=== PATIENT | male | born 1940 | race Caucasian/White ===

== ENCOUNTER 2017-11-05 18:21 | Emergency (ER) | payer MEDICARE, BC ==
[~2017-11-05] VITALS: Ht 177.8 cm; Wt 85.0 kg
[2017-11-05 18:23] VITALS: BP 160/97; PULSE 105; RESP 20; TEMP 102.4; O2SAT 94
[2017-11-05] MEDS ORDERED: SODIUM CHLOR 0.9% 1000 ML INJ 1,000 ML IV ONE (18:45)
[2017-11-05] MEDS ORDERED: SODIUM CHLORIDE 0.9% FLUSH 10 ML FLUSH IVF PRN (18:45)
[2017-11-05] MEDS ORDERED: ACETAMINOPHEN 500 MG CPLT PO ONE (18:45)
[2017-11-05] MEDS ORDERED: RESP: ALBUTEROL 2.5 MG/IPRATROPIUM 0.5 MG NEB (SCH) INH ONE (18:45)
[2017-11-05 18:55] VITALS: O2SAT 93
[2017-11-05 19:35] VITALS: BP 153/83; PULSE 102; RESP 18; O2SAT 95
--- NOTE | 2017-11-05 19:35 | RADRPT ---
EXAM DATE/TIME: 11/05/2017 19:00 [place] COMPARISON: No previous studies available for comparison. INDICATIONS : Flu like symptoms. MEDICAL HISTORY : AFIB, Pneumonia. SURGICAL HISTORY : Ablation, Surgery to bronchi ENCOUNTER: Initial ACUITY: 3 weeks PAIN SCORE: 3/10 LOCATION: Bilateral chest FINDINGS: A single view of the chest demonstrates the lungs to be symmetrically aerated without evidence of mas s, infiltrate or effusion. The cardiomediastinal contours are unremarkable. Osseous structures are intact. CONCLUSION: No acute disease. Blue Diana Jr., MD on November 05, 2017 at 19:33 Board Certified Radiologist. This report was verified electronically.
[2017-11-05 20:03] LABS: AUTOMATED NEUTROPHIL # 12.1 TH/MM3 (1.8-7.7); BASOPHIL % 0.3 % (0.0-2.0); EOSINOPHIL # 0.2 TH/MM3 (0-0.4); EOSINOPHIL % 1.3 % (0.0-4.0); HEMATOCRIT 45.7 % (39.0-51.0); HEMOGLOBIN 15.2 GM/DL (13.0-17.0); LYMPH % 3.7 % (9.0-44.0); LYMPHOCYTE # 0.5 TH/MM3 (1.0-4.8); MEAN CELL VOLUME 95.6 FL (80.0-100.0); MEAN CORPUSCULAR HEMOGLOBIN 31.8 PG (27.0-34.0); MEAN CORPUSCULAR HGB CONC 33.2 % (32.0-36.0); MONO % 5.1 % (0.0-8.0); MONOCYTE # 0.7 TH/MM3 (0-0.9); NEUT % 89.6 % (16.0-70.0); PLATELET COUNT 197 TH/MM3 (150-450); RED BLOOD COUNT 4.78 MIL/MM3 (4.50-5.90); RED CELL DISTRIBUTION WIDTH 13.7 % (11.6-17.2); WHITE BLOOD COUNT 13.5 TH/MM3 (4.0-11.0)
[2017-11-05 20:23] LABS: ALBUMIN 3.9 GM/DL (3.4-5.0); AST (GOT) 23 U/L (15-37); BICARBONATE 25.7 MEQ/L (21.0-32.0); BLOOD UREA NITROGEN 15 MG/DL (7-18); CALCIUM 9.3 MG/DL (8.5-10.1); CHLORIDE 105 MEQ/L (98-107); CREATININE 0.83 MG/DL (0.60-1.30); GLOMERULAR FILTRATION RATE 90 ML/MIN (>89); GLUCOSE,RANDOM 103 MG/DL (74-106); SODIUM (NA) 140 MEQ/L (136-145)
--- NOTE | 2017-11-05 20:27 | PD ---
HPI Chief Complaint: Cold / Flu Symptoms Time Seen by Provider: 18:35 Travel History International Travel<30 days: No Contact w/Intl Traveler<30days: No Traveled to known affect area: No History of Present Illness HPI Patient is 77-year-old male presenting to the emergency Department for evaluation of fever, chills, sore throat, cough, chest congestion and headache. Patient states his symptoms started earlier today however he reports feeling fatigued for the last 1-2 weeks and the cough started at about that time as well. He reports feeling intermittent chest tightness and pressure. He denies any nausea, vomiting, abdominal pain. He does report a mild headache and rates his pain a 4 out of 10 and states it's dull. Patient took 500 mg of acetaminophen 1 hour prior to arrival. Patient's past medical history significant for hypothyroidism, BPH, atrial fibrillation, asthma and hypertension. Symptom onset was gradual, there have been no alleviating factors , there are no exacerbating factors either. PFSH Past Medical History Asthma: Yes Atrial Fibrillation: Yes Hypertension: Yes Thyroid Disease: Yes Social History Alcohol Use: Yes Tobacco Use: No Substance Use: No Allergies-Medications (Allergen,Severity, Reaction): Coded Allergies: Penicillins (Verified Allergy, Unknown, 11/05/17) cefaclor (Verified Allergy, Unknown, 11/05/17) Review of Systems Except as stated in HPI: all other systems reviewed are Neg General / Constitutional: Positive: Fever, Chills HENT: Positive: Headaches, Sore Throat, Congestion Cardiovascular: No: Chest Pain or Discomfort, Tachycardia, Edema Respiratory: Positive: Cough, No: Shortness of Breath, Wheezing Gastrointestinal: No: Nausea, Vomiting, Abdominal Pain Musculoskeletal: Positive: Myalgias Neurologic: No: Weakness Physical Exam Narrative GENERAL: Well-developed, well-nourished elderly male. Resting in no acute distress. SKIN: Warm and dry. HEAD: Atraumatic. Normocephalic. EYES: Pupils equal and round. No scleral icterus. No injection or drainage. ENT: No nasal bleeding or discharge. Mucous membranes pink and moist. Mild erythema noted to posterior pharynx, no tonsillar hypertrophy, uvula is midline airway is patent. NECK: Trachea midline. No JVD. CARDIOVASCULAR: Mildly tachycardic RESPIRATORY: No accessory muscle use. Clear to auscultation. Scattered expiratory wheezes GASTROINTESTINAL: Abdomen soft, non-tender, nondistended. Hepatic and splenic margins not palpable. MUSCULOSKELETAL: Extremities without clubbing, cyanosis, or edema. No obvious deformities. NEUROLOGICAL: Awake and alert. No obvious cranial nerve deficits. Motor grossly within normal limits. Five out of 5 muscle strength in the arms and legs. Normal speech. PSYCHIATRIC: Appropriate mood and affect; insight and judgment normal. Data Data Last Documented VS Vital Signs Date Time Temp Pulse Resp B/P (MAP) Pulse Ox O2 Delivery O2 Flow Rate FiO2 11/05/17 21:47 98.9 77 18 136/81 (99) 96 Nasal Cannula 2.00 11/05/17 18:55 21 Orders Orders Complete Blood Count With Diff (11/05/17 18:36) Comprehensive Metabolic Panel (11/05/17 18:36) Group A Rapid Strep Screen (11/05/17 18:36) Influenzae A/B Antigen (11/05/17 18:36) Chest, Single Ap (11/05/17 18:36) Ecg Monitoring (11/05/17 18:36) Iv Access Insert/Monitor (11/05/17 18:36) Oximetry (11/05/17 18:36) Sodium Chloride 0.9% Flush (Ns Flush) (11/05/17 18:45) Acetaminophen (Tylenol) (11/05/17 18:45) Sodium Chlor 0.9% 1000 Ml Inj (Ns 1000 M (11/05/17 18:45) Albuterol-Ipratropium Neb (Duoneb Neb) (11/05/17 18:45) Sepsis Workup Initiated (11/05/17 ) Electrocardiogram (11/05/17 18:36) Lactic Acid Sepsis Protocol (11/05/17 18:36) Strep Culture (Group A) (11/05/17 19:15) Ckmb (Isoenzyme) Profile (11/05/17 20:20) Troponin I (11/05/17 20:20) B-Type Natriuretic Peptide (11/05/17 20:37) Urinalysis - C+S If Indicated (11/05/17 20:44) CKMB (11/05/17 19:15) CKMB% (11/05/17 19:15) Labs Laboratory Tests Test 11/05/17 19:15 11/05/17 21:12 White Blood Count 13.5 TH/MM3 Red Blood Count 4.78 MIL/MM3 Hemoglobin 15.2 GM/DL Hematocrit 45.7 % Mean Corpuscular Volume 95.6 FL Mean Corpuscular Hemoglobin 31.8 PG Mean Corpuscular Hemoglobin Concent 33.2 % Red Cell Distribution Width 13.7 % Platelet Count 197 TH/MM3 Mean Platelet Volume 9.0 FL Neutrophils (%) (Auto) 89.6 % Lymphocytes (%) (Auto) 3.7 % Monocytes (%) (Auto) 5.1 % Eosinophils (%) (Auto) 1.3 % Basophils (%) (Auto) 0.3 % Neutrophils # (Auto) 12.1 TH/MM3 Lymphocytes # (Auto) 0.5 TH/MM3 Monocytes # (Auto) 0.7 TH/MM3 Eosinophils # (Auto) 0.2 TH/MM3 Basophils # (Auto) 0.0 TH/MM3 CBC Comment DIFF FINAL Differential Comment Blood Urea Nitrogen 15 MG/DL Creatinine 0.83 MG/DL Random Glucose 103 MG/DL Total Protein 7.2 GM/DL Albumin 3.9 GM/DL Calcium Level 9.3 MG/DL Alkaline Phosphatase 68 U/L Aspartate Amino Transf (AST/SGOT) 23 U/L Alanine Aminotransferase (ALT/SGPT) 28 U/L Total Bilirubin 0.6 MG/DL Sodium Level 140 MEQ/L Potassium Level 3.8 MEQ/L Chloride Level 105 MEQ/L Carbon Dioxide Level 25.7 MEQ/L Anion Gap 9 MEQ/L Estimat Glomerular Filtration Rate 90 ML/MIN Lactic Acid Level 1.1 mmol/L Total Creatine Kinase 159 U/L Creatine Kinase MB 1.2 NG/ML Troponin I LESS THAN 0.02 NG/ML B-Type Natriuretic Peptide 28 PG/ML Urine Color YELLOW Urine Turbidity CLEAR Urine pH 6.5 Urine Specific Patriot 1.012 Urine Protein NEG mg/dL Urine Glucose (UA) NEG mg/dL Urine Ketones NEG mg/dL Urine Occult Blood NEG Urine Nitrite NEG Urine Bilirubin NEG Urine Urobilinogen LESS THAN 2.0 MG/DL Urine Leukocyte Esterase NEG Urine RBC 1 /hpf Urine WBC LESS THAN 1 /hpf Urine Squamous Epithelial Cells <1 /hpf Urine Mucus FEW /lpf Urine Sperm RARE Microscopic Urinalysis Comment CULT NOT INDICATED MDM Medical Decision Making Medical Screen Exam Complete: Yes Emergency Medical Condition: Yes Interpretation(s) Vital Signs Date Time Temp Pulse Resp B/P (MAP) Pulse Ox O2 Delivery O2 Flow Rate FiO2 11/05/17 21:47 98.9 77 18 136/81 (99) 96 Nasal Cannula 2.00 11/05/17 19:35 102 18 153/83 (106) 95 Nasal Cannula 2.00 11/05/17 18:55 93 21 11/05/17 18:23 102.4 105 20 160/97 (118) 94 Last Impressions Chest X-Ray 11/05/17 1836 Signed Impressions: Service Date/Time: Sunday, November 05, 2017 19:00 - CONCLUSION: No acute disease. Blue Diana Jr., MD Laboratory Tests Test 11/05/17 19:15 11/05/17 21:12 White Blood Count 13.5 TH/MM3 Red Blood Count 4.78 MIL/MM3 Hemoglobin 15.2 GM/DL Hematocrit 45.7 % Mean Corpuscular Volume 95.6 FL Mean Corpuscular Hemoglobin 31.8 PG Mean Corpuscular Hemoglobin Concent 33.2 % Red Cell Distribution Width 13.7 % Platelet Count 197 TH/MM3 Mean Platelet Volume 9.0 FL Neutrophils (%) (Auto) 89.6 % Lymphocytes (%) (Auto) 3.7 % Monocytes (%) (Auto) 5.1 % Eosinophils (%) (Auto) 1.3 % Basophils (%) (Auto) 0.3 % Neutrophils # (Auto) 12.1 TH/MM3 Lymphocytes # (Auto) 0.5 TH/MM3 Monocytes # (Auto) 0.7 TH/MM3 Eosinophils # (Auto) 0.2 TH/MM3 Basophils # (Auto) 0.0 TH/MM3 CBC Comment DIFF FINAL Differential Comment Blood Urea Nitrogen 15 MG/DL Creatinine 0.83 MG/DL Random Glucose 103 MG/DL Total Protein 7.2 GM/DL Albumin 3.9 GM/DL Calcium Level 9.3 MG/DL Alkaline Phosphatase 68 U/L Aspartate Amino Transf (AST/SGOT) 23 U/L Alanine Aminotransferase (ALT/SGPT) 28 U/L Total Bilirubin 0.6 MG/DL Sodium Level 140 MEQ/L Potassium Level 3.8 MEQ/L Chloride Level 105 MEQ/L Carbon Dioxide Level 25.7 MEQ/L Anion Gap 9 MEQ/L Estimat Glomerular Filtration Rate 90 ML/MIN Lactic Acid Level 1.1 mmol/L Total Creatine Kinase 159 U/L Creatine Kinase MB 1.2 NG/ML Troponin I LESS THAN 0.02 NG/ML B-Type Natriuretic Peptide 28 PG/ML Urine Color YELLOW Urine Turbidity CLEAR Urine pH 6.5 Urine Specific Patriot 1.012 Urine Protein NEG mg/dL Urine Glucose (UA) NEG mg/dL Urine Ketones NEG mg/dL Urine Occult Blood NEG Urine Nitrite NEG Urine Bilirubin NEG Urine Urobilinogen LESS THAN 2.0 MG/DL Urine Leukocyte Esterase NEG Urine RBC 1 /hpf Urine WBC LESS THAN 1 /hpf Urine Squamous Epithelial Cells <1 /hpf Urine Mucus FEW /lpf Urine Sperm RARE Microscopic Urinalysis Comment CULT NOT INDICATED Differential Diagnosis Influenza versus strep versus viral syndrome versus pneumonia versus other Narrative Course Patient is a 77-year-old male that presented to emergency for evaluation of cold and flu symptoms that started this morning. Patient presented febrile and mildly tachycardic. Labs and imaging ordered and pending. Patient was given Tylenol 500 mg orally, he had taken 100 mg prior to arrival. CBC with a white count of 13.5 with a slight left shift Cardiac enzymes are negative, BNP is 28 Urinalysis unremarkable Influenza and strep are negative Patient's vital signs are reassessed, he is currently afebrile and his heart rate has normalized. Fevers likely secondary to a viral syndrome, there was no source of infection identified in the urine, chest x-ray influenza or strep. He had no complaints of abdominal pain and had a benign exam otherwise. Patient reports feeling better, he was advised to maintain adequate fluid intake , rest, continue symptomatic management. Patient was reevaluated on room air and his oxygen saturation is at 97%. Patient was given strict return precautions. Patient was advised to return to emergency department immediately for any new or worsening symptoms. Patient and verbalized understanding of these instructions. Patient is stable for discharge. Diagnosis Primary Impression: Acute viral syndrome Referrals: Primary Care Physician 2 days Patient Instructions: General Instructions, Viral Syndrome (ED) Additional Instructions: Return to emergency department immediately for any new or worsening symptoms as discussed Maintain adequate fluid intake Continue symptomatic management Rest Follow-up with your primary doctor Take Acetaminophen every 4-6 hours for pain and fever. Do not exceed 4000mg in a 24 hour period. Take as directed Med/Other Pt SpecificInfo: Prescription(s) given Scripts Guaifenesin-Codeine Liq (Cheratussin AC Liq) 100-10 Mg/5 Ml Syrp 5 ML PO Q4H Y for COUGH AND COLD SYMPTOMS, #120 ML 0 Refills Do not exceed 6 doses/24 hrs. Prov: Helen Montejo 11/05/17 Disposition: 01 DISCHARGE HOME Condition: Stable Helen Montejo Nov 05, 2017 20:27
[2017-11-05 20:28] LABS: ALKALINE PHOSPHATASE 68 U/L (45-117); ALT (GPT) 28 U/L (12-78); TOTAL BILIRUBIN ADULT 0.6 MG/DL (0.2-1.0); TOTAL PROTEIN 7.2 GM/DL (6.4-8.2)
[2017-11-05 21:47] VITALS: BP 136/81; PULSE 77; RESP 18; TEMP 98.9; O2SAT 96
[2017-11-05 21:53] LABS: TROPONIN I LESS THAN 0.02 NG/ML (0.02-0.05)
[2017-11-05 22:04] LABS: BILIRUBIN, URINE NEG (NEG); BLOOD, URINE NEG (NEG); GLUCOSE,URINE NEG (NEG); KETONE, URINE NEG (NEG); MUCUS URINE FEW /lpf (OCC); NITRITE,URINE NEG (NEG); PH, URINE 6.5 (5.0-8.5); SPERM, URINE RARE; SQUAMOUS EPITHELIAL CELL URINE <1 /hpf (0-5); URINE COLOR YELLOW (YELLW/STRAW); URINE LEUKOCYTE ESTERASE NEG (NEG)
[2017-11-05] MEDS ORDERED: CHERSYP2 PO (22:23)
--- NOTE | 2017-11-06 13:15 | EKG ---
Date Performed: 11/05/2017 Time Performed: 19:30:25 PTAGE: 77 years EKG: Sinus rhythm BORDERLINE LEFT AXIS DEVIATION RIGHT BUNDLE BRANCH BLOCK ABNORMAL ECG NO PREVIOUS TRACING DOCTOR: Jb Cortes Interpretating Date/Time 11/06/2017 13:15:00
== END 2017-11-05 23:03 | disposition home or self-care (01) ==
LOC: NEPC 18:21
DX: B34.9 Viral infection, unspecified (principal); R51 Headache; J02.9 Acute pharyngitis, unspecified; R07.89 Other chest pain; I10 Essential (primary) hypertension; I48.91 Unspecified atrial fibrillation; J45.909 Unspecified asthma, uncomplicated; N40.0 Benign prostatic hyperplasia without lower urinary tract symptoms; E03.9 Hypothyroidism, unspecified; R94.31 Abnormal electrocardiogram [ECG] [EKG]
CPT/HCPCS: 71045; 80053; 81001; 82550; 82552; 83605; 83880; 84484; 85025; 87081; 87804; 87880; 93005; 94664; 99285; J7030